=== PATIENT | female | born 1975 | race Two or more races ===

== ENCOUNTER 2024-03-17 21:31 | Emergency (ER) | payer MEDICAID, SELFPAY ==
[2024-03-17 21:32] VITALS: BMI 34.7
[2024-03-17 21:43] VITALS: BP 158/90; PULSE 74; RESP 18; TEMP 37.1; O2SAT 97
--- NOTE | 2024-03-17 21:49 | PD.EDALLER ---
ED Allergic Reaction RME/HPI General Chief complaint: Allergic Reaction Stated complaint: HIVES ALL OVER BODY Time Seen by Provider: 03/17/24 21:48 Arrival date/time: 03/17/24 21:31 48F with history of DM presents to ED with 1 week of intermittent generalized itchy rash. Cetirizine improved it. Patient denies new meds, foods, hygiene products, SOB, and throat swelling. Limitations: no limitations Related Data Home Medications ?Medication ?Instructions ?Recorded ?Confirmed metformin 500 mg tablet 500 mg PO QDAY #0 tabs 02/25/15 (Glucophage) metoprolol tartrate 25 mg tablet PO QDAY #0 tabs 02/25/15 Previous Rx's ?Medication ?Instructions ?Recorded Hydrocodone/Acetaminophen * (NORCO 1 tab PO Q4H PRN ABDOMINAL PAIN 05/11/15 5/325 *) #30 tabs tramadol 50 mg tablet (Ultram) 50 mg PO every 6 hours PRN severe 06/16/16 pain #30 tabs hydrocodone 5 mg-acetaminophen 325 1 tab PO BID PRN pain #10 tabs 12/26/20 mg tablet ibuprofen 800 mg tablet 800 mg PO TID PRN pain #30 tabs 12/26/20 hydrocodone 5 mg-acetaminophen 325 1 tab PO BID PRN pain #10 tabs 08/02/ mg tablet prednisone 20 mg tablet 20 mg PO BID 4 days #8 tabs 03/17/24 Allergies Allergy/AdvReac Type Severity Reaction Status Date / Time No Known Allergies Allergy Verified 03/17/24 21:33 Review of Systems Review of Systems Systems Reviewed: All systems reviewed, normal except as documented Constitutional Constitutional: Reports system reviewed and no additional complaints, except as documented, Denies fever(s) and Denies headache(s) ENT Ears, Nose, Mouth, and Throat: Denies disequilibrium and Denies headache(s) Cardiovascular Cardiovascular: Reports system reviewed and no additional complaints, except as documented, Denies chest pain and Denies dyspnea Respiratory Respiratory: Reports system reviewed and no additional complaints, except as documented, Denies cough and Denies dyspnea Gastrointestinal Gastrointestinal: Reports system reviewed and no additional complaints, except as documented, Denies abdominal pain, Denies nausea and Denies vomiting Integumentary/Breasts Skin/Breast: Reports as per HPI, Reports pruritus and Reports rash Neurologic Neurologic: Reports system reviewed and no additional complaints, except as documented, Denies confusion, Denies disequilibrium and Denies headache(s) Psychiatric Psychiatric: Denies confusion Past Medical History Social History SMOKING STATUS: Never smoker ED Exam General Limitations: Present no limitations General appearance: Present alert and in no apparent distress Head Head exam: Present atraumatic Eye Eye exam: Present normal appearance, PERRL and EOMI ENT ENT exam: Present normal exam, normal oropharynx and mucous membranes moist Neck Neck exam: Present normal inspection, full ROM and trachea midline Chest Chest inspection: Present normal inspection and symmetric chest wall rise Respiratory Respiratory exam: Present normal lung sounds bilaterally Cardiovascular Cardiovascular exam: Present regular rate, normal rhythm and normal heart sounds Abdominal Exam Abdominal exam: Present soft and normal bowel sounds Extremities Exam Extremities exam: Present normal inspection and full ROM Back Exam Back exam: Present normal inspection and full ROM Neurological Exam Neurological exam: Present alert, oriented X3 and CN II-XII intact Psychiatric Psychiatric exam: Present normal affect and normal mood Skin Skin exam: Present warm, dry, intact, normal color and rash Course Quality Measures none Orders Category Date Time Status Dexamethasone Inj [Decadron Inj] Med 03/17/24 21:48 Discontinued 10 mg PO X1 ONE DiphenhydrAMINE [Benadryl] Med 03/17/24 21:48 Discontinued 25 mg PO X1 ONE Famotidine [Pepcid] Med 03/17/24 21:48 Discontinued 40 mg PO X1 ONE predniSONE Med 03/17/24 21:48 Discontinued 20 mg PO X1 ONE Vital Signs Vital signs: Vital Signs Temperature 98.8 F 03/17/24 21:43 Pulse Rate 74 03/17/24 21:43 Respiratory Rate 18 03/17/24 21:43 Blood Pressure 158/90 H 03/17/24 21:43 Pulse Oximetry (%) 97 03/17/24 21:43 Oxygen Delivery Method Room Air 03/17/24 21:43 O2 at 97% on RA and WNLs Allergic Reaction MDM Narrative MDM Narrative:: 48F with history of DM presents to ED with 1 week of intermittent generalized itchy rash. Cetirizine improved it. Patient denies new meds, foods, hygiene products, SOB, and throat swelling. Physical exam reveals mild but generalized urticarial rash. Clear ENT and lungs. Patient is afebrile, calm, and alert. Meds relieved symptoms. Patient data External records reviewed:: [facility] previous records Clinical information provided by:: patient Social determinants that could affect healthcare access:: none Patient has the following chronic illnesses:: DM How is presenting disease/condition affected by chronic disease/condition?: uneffected by Evaluation data The following diagnostics were reviewed and interpreted by me:: other (specify) (none) Lab and/or radiology exams considered but not ordered:: not ordered Interpretation Summary: n/a Medications / Prescriptions Medications or Prescriptions considered but not ordered:: ordered Medication administrations:: Medication Administration History Discontinued Medications Dexamethasone Sodium Phosphate (Dexamethasone Sod Phos Inj 10 Mg/Ml Vial) 10 mg PO X1 ONE Stop: 03/17/24 21:49 Last Admin: 03/17/24 21:56 Dose: 10 mg Documented By: OA Diphenhydramine HCl (Diphenhydramine 25 Mg Capsule) 25 mg PO X1 ONE Stop: 03/17/24 21:49 Last Admin: 03/17/24 21:56 Dose: 25 mg Documented By: OA Famotidine (Famotidine 20 Mg Tablet) 40 mg PO X1 ONE Stop: 03/17/24 21:49 Last Admin: 03/17/24 21:55 Dose: 40 mg Documented By: OA Prednisone (Prednisone 20 Mg Tablet) 20 mg PO X1 ONE Stop: 03/17/24 21:49 Last Admin: 03/17/24 21:56 Dose: 20 mg Documented By: OA above Consultations Consultation(s) initiated? (list below): No Diagnosis Differential Diagnosis allergic reaction: anaphylaxis, allergic reaction, angioedema, contact dermatitis, adverse reaction to drug, viral enanthem and urticaria Most likely diagnosis given after review of the tests above:: urticaria Admission Indicated Admission indicated?: not indicated Admission Request Was there a request for admission?: No Disposition Plan Disposition Plan: Discharge Discharge Attestation Discharge Attestation: The patient and all family members were given an opportunity to ask questions and understood the discharge instructions. Discharge instructions specifically effects, indications for sooner follow up or return to the emergency department, and the expected course of current diagnosis. Patient condition: Stable Discharge Plan Plan Patient Disposition: HOME (Self Care) Disposition Comment: Stable Prescriptions/Referrals Prescriptions/Med Rec: New prednisone 20 mg tablet 20 mg PO BID 4 Days Qty: 8 0RF No Action metformin [Glucophage] 500 MG tablet 500 mg PO QDAY Qty: 0 metoprolol tartrate 25 MG tablet PO QDAY Qty: 0 Hydrocodone/Acetaminophen * (NORCO 5/325 *) 1 TAB tablet 1 tab PO Q4H PRN (Reason: ABDOMINAL PAIN) Qty: 30 0RF tramadol [Ultram] 50 MG tablet 50 mg PO every 6 hours PRN (Reason: severe pain) Qty: 30 0RF Rx Instructions: FOR PAIN, NOT TO EXCEED 8 TABS IN 24 HRS ibuprofen 800 mg tablet 800 mg PO TID PRN (Reason: pain) Qty: 30 0RF hydrocodone-acetaminophen 5-325 mg tablet 1 tab PO BID MDD 10 PRN (Reason: pain) Qty: 10 0RF hydrocodone-acetaminophen 5-325 mg tablet 1 tab PO BID MDD 10 PRN (Reason: pain) Qty: 10 0RF Referrals: Chepe Gallegos MD [Primary Care Provider] - In 1 week Problem List Clinical Impression: Urticaria Patient/Caregiver Discharge Instructions Education Materials: ED Hives (Adult) Additional Instructions: Please follow-up with PCP within 24-48 hours and return immediately if symptoms worsen. Take OTC antihistamine as needed until symptoms resolve. Finish entire steroid course. Watch sugars as steroids will elevate BS. Print Language: Iranian Stand Alone Forms: Patient Portal Info Letter PA/ADELFO Supervising Physician ANISHA/ADELFO Supervising Physician: Dr. Rodriguez
[2024-03-17] MEDS: FAMOTIDINE 20 MG TABLET 40 MG PO (21:55)
[2024-03-17] MEDS: DiphenhydrAMINE 25 MG CAPSULE PO (21:56)
[2024-03-17] MEDS: DEXAMETHASONE SOD PHOS INJ 10 MG/ML VIAL PO (21:56)
[2024-03-17] MEDS: predniSONE 20 MG TABLET PO (21:56)
== END 2024-03-18 00:51 | disposition home or self-care (01) ==
PROVIDERS: Emergency Provider Emergency Medicine; PCP Family Medicine
DX: L50.9 Urticaria, unspecified (principal)
CPT/HCPCS: 99282; J1100; J7512; A9270

== ENCOUNTER 2024-03-22 00:35 | Emergency (ER) | payer MEDICAID, SELFPAY ==
[2024-03-22 00:39] VITALS: BMI 34.7
[2024-03-22 00:57] VITALS: BP 137/79; PULSE 70; RESP 16; TEMP 37; O2SAT 98
--- NOTE | 2024-03-22 01:06 | PD.EDSKIN ---
ED Skin Abcess FB-RME/HPI General Chief complaint: Skin/Abscess/Foreign Body Stated complaint: RASH ALL OVER Time Seen by Provider: 03/22/24 00:41 Arrival date/time: 03/22/24 00:35 48 year old female present to emergency room with c/o of hives today. pt report hive return today. pt had similar rash 6 days ago. has an appointment with specialist next week. LOCATION: chest/abd SEVERITY: Symptoms are described as being severe with limitations on activities of daily living QUALITY: Symptoms are described as being dull or achy CONTEXT: The patient is unable to identify any inciting events. DURATION/TIMING: The symptoms started approximately one day ago ASSOCIATED SYMPTOMS: The patient is unable to identify any other associated symptoms. MODIFYING FACTORS: The patient is unable to identify any alleviating or aggravating symptoms. PERTINENT ROS: denies IVDU, states no immunocompromising condition, denies any penetrating trauma, no fever, no unexplained nausea or vomiting, no headache, no chest pain REVIEW OF SYSTEMS: See History of Present Illness - with the exception of those mentioned in the history of present illness, all other systems reviewed and reported as negative GENERAL: In general the patient is awake, interactive, in an emergency department gurney. HEAD/EYES/EARS/NOSE/THROAT: normo-cephalic, atraumatic, mucus membranes are moist, anicteric, palpebral conjunctiva is pink, trachea is midline. CARDIOVASCULAR: regular rate and regular rhythm, no murmurs, heart sounds are not distant, strong pulses in all four extremities that are equal and symmetric bilateral upper and lower extremities, normal capillary refill. CHEST/PULMONARY: normal chest rise and fall, good air movement, clear to auscultation bilaterally, normal inspiratory to expiratory ratios without evidence of respiratory distress. NECK: No midline/Paraspinal tenderness, no step off ROM/Strenght intact No Kernig and bruzinski sign. No trauma ABDOMEN: soft, not tender, no masses appreciated BACK: normal range of motion without pain. NEUROLOGICAL: cranio-facial features are symmetric, moves all four extremities equally without obvious limitations or weakness. EXTREMITY: no tenderness to palpation over the long bones or large joints of the bilateral upper and lower extremities, no joint swelling, no joint erythema, no signs of trauma, no unilateral leg swelling and no peripheral edema. SKIN: warm, dry, well-perfused, no jaundice, + hive like rash on chect/abdominal reion , no telangiectasias or petechia. PSYCH: calm, cooperative, no evidence of psychosis or agitation Related Data Home Medications ?Medication ?Instructions ?Recorded ?Confirmed metformin 500 mg tablet 500 mg PO QDAY #0 tabs 02/25/15 (Glucophage) metoprolol tartrate 25 mg tablet PO QDAY #0 tabs 02/25/15 Previous Rx's ?Medication ?Instructions ?Recorded Hydrocodone/Acetaminophen * (NORCO 1 tab PO Q4H PRN ABDOMINAL PAIN 05/11/15 5/325 *) #30 tabs tramadol 50 mg tablet (Ultram) 50 mg PO every 6 hours PRN severe 06/16/16 pain #30 tabs hydrocodone 5 mg-acetaminophen 325 1 tab PO BID PRN pain #10 tabs 12/26/20 mg tablet ibuprofen 800 mg tablet 800 mg PO TID PRN pain #30 tabs 12/26/20 hydrocodone 5 mg-acetaminophen 325 1 tab PO BID PRN pain #10 tabs 08/02/22 mg tablet loratadine 10 mg tablet (Allergy 10 mg PO QDAY #30 tabs 03/22/24 Relief (loratadine)) Allergies Allergy/AdvReac Type Severity Reaction Status Date / Time No Known Allergies Allergy Verified 03/17/24 21:33 Course Course Course Narrative: Patient presenting with urticaria.? The inciting event was likely unknown Patient provided Benadryl 25mg IM? Following which, patient stated they felt improved.? Discussed continuing Benadryl treatments every?-6 hours.? Patient is to follow up with primary care provider to further discuss anaphylactic treatment and allergin testing as needed.? Return to clinic or emergency department urgently if new or worsening symptoms develop including oral swelling, difficulty breathing, chest pain, shortness of breath, worsening rash, headache, or other worrisome symptoms. ? ? Plan:? Diphenhydramine?-50mg q4-6h PRN.? Loratadine?mg qam RPN. and educated Pt on indications for administration. Advised Pt on supportive therapies, including decreasing exposure to possible allergens, cold application, OTC ibuprofen as directed prn, and advancement of fluids as tolerated. Educated Pt on signs and symptoms of anaphylaxis and instructed her to report to ED should worrisome signs present.? Pt verbally expressed understanding and all questions were addressed to Pt's satisfaction. Quality Measures none Orders Category Date Time Status DiphenhydrAMINE INJ [Benadryl Inj] Med 03/22/24 01:05 Discontinued 25 mg IM X1 ONE Vital Signs Vital signs: Vital Signs Temperature 98.6 F 03/22/24 00:57 Pulse Rate 70 03/22/24 00:57 Respiratory Rate 16 03/22/24 00:57 Blood Pressure 137/79 H 03/22/24 00:57 Pulse Oximetry (%) 98 03/22/24 00:57 Oxygen Delivery Method Room Air 03/22/24 00:57 Skin / Abscess / Foreign Body Patient data External records reviewed:: Other (specify) Clinical information provided by:: patient Social determinants that could affect healthcare access:: none Patient has the following chronic illnesses:: none How is presenting disease/condition affected by chronic disease/condition?: no chronic disease Evaluation data The following diagnostics were reviewed and interpreted by me:: other (specify) Lab and/or radiology exams considered but not ordered:: none Interpretation Summary: none Medications / Prescriptions Medications or Prescriptions considered but not ordered:: none Medication administrations:: Medication Administration History Discontinued Medications Diphenhydramine HCl (Diphenhydramine Inj 50 Mg/Ml Vial) 25 mg IM X1 ONE Stop: 03/22/24 01:06 as stated above Consultations Consultation(s) initiated? (list below): No Diagnosis Skin/Abscess Differential Diagnosis: urticaria and allergic reaction to drug Most likely diagnosis given after review of the tests above:: hives Admission Indicated Admission indicated?: not indicated Admission Request Was there a request for admission?: No Disposition Plan Disposition Plan: Discharge Discharge Attestation Discharge Attestation: The patient and all family members were given an opportunity to ask questions and understood the discharge instructions. Discharge instructions specifically effects, indications for sooner follow up or return to the emergency department, and the expected course of current diagnosis. Patient condition: Stable Discharge Plan Plan Patient Disposition: HOME (Self Care) Health Concerns: Follow up with your specialist as schedule Return to Ed if symptoms worsen Prescriptions/Referrals Prescriptions/Med Rec: New loratadine [Allergy Relief (loratadine)] 10 mg tablet 10 mg PO QDAY Qty: 30 0RF No Action metformin [Glucophage] 500 MG tablet 500 mg PO QDAY Qty: 0 metoprolol tartrate 25 MG tablet PO QDAY Qty: 0 Hydrocodone/Acetaminophen * (NORCO 5/325 *) 1 TAB tablet 1 tab PO Q4H PRN (Reason: ABDOMINAL PAIN) Qty: 30 0RF tramadol [Ultram] 50 MG tablet 50 mg PO every 6 hours PRN (Reason: severe pain) Qty: 30 0RF Rx Instructions: FOR PAIN, NOT TO EXCEED 8 TABS IN 24 HRS ibuprofen 800 mg tablet 800 mg PO TID PRN (Reason: pain) Qty: 30 0RF hydrocodone-acetaminophen 5-325 mg tablet 1 tab PO BID MDD 10 PRN (Reason: pain) Qty: 10 0RF hydrocodone-acetaminophen 5-325 mg tablet 1 tab PO BID MDD 10 PRN (Reason: pain) Qty: 10 0RF Problem List Clinical Impression: Urticaria Patient/Caregiver Discharge Instructions Education Materials: ED Hives (Adult) Print Language: Portuguese Stand Alone Forms: Rissa Award Info., Patient Portal Info Letter
[2024-03-22] MEDS: DiphenhydrAMINE INJ 50 MG/ML VIAL 25 MG IM (01:33)
== END 2024-03-22 02:19 | disposition home or self-care (01) ==
LOC: SERX 01:37
PROVIDERS: Emergency Provider Emergency Medicine; PCP Nurse Practitioner Family
DX: L50.9 Urticaria, unspecified (principal)
CPT/HCPCS: 96372; 99283; J1200

== ENCOUNTER 2024-09-17 11:19 | Emergency (ER) | payer MEDICAID, SELFPAY ==
[2024-09-17 11:21] VITALS: BMI 37.2
[2024-09-17 11:43] VITALS: BP 160/89; PULSE 78; RESP 17; TEMP 37.1; O2SAT 98
--- NOTE | 2024-09-17 11:53 | XR_ITS ---
Examination: CT brain head without contrast. 2-D sagittal coronal reconstructions Date and time of exam:September 17, 2024 1205 hours Syncopal episodes and dizziness beginning this morning CTDI: vol (mGy):56.4 DLP: (mGycm):1195 Technique: Multiple CT axial sections of the brain have been obtained, 5 mm slice thickness. Contrast has not been administered. 2-D sagittal, coronal reconstructions have been obtained Low dose protocols were performed. One or more of the following dose reduction techniques were used; automated exposure control, adjustment of the mA and/or KV according to patient size, use of iterative reconstruction technique. Findings: No significant ventricular enlargement. Intra-axial or extra-axial hemorrhage density is not seen. No mass effect or midline shift Basal cisterns are not remarkable. Fourth ventricle is midline. Cranial vault intact. Impression: Negative for acute hemorrhage, mass effect or midline shift Advise clinical correlation follow-up accordingly
--- NOTE | 2024-09-17 11:53 | EKG_ITS ---
[facility] Test Date: 2024-09-17 Pat Name: JULIAN RAM Department: Room: - Gender: Female [employer]: : 1975 Requested By: Oswaldo Alejandro Order Number: [id number] Reading MD: Oswaldo Alejandro Measurements Intervals Jermyn Rate: 77 P: 56 MD: 163 QRS: 42 QRSD: 95 T: 43 QT: 370 QTc: 421 Interpretive Statements SINUS RHYTHM No previous ECG available for comparison /store/S0/[id number]
--- NOTE | 2024-09-17 11:54 | PD.EDRME ---
Rapid Medical Screening Exam E Arrival date/time: 09/17/24 11:19 49-year-old female with a history of type 2 diabetes and hypertension presents to the emergency room with a chief complaint of having multiple episodes of dizziness and syncope this morning around 1 AM. Patient states she woke up to use the restroom felt very dizzy and had a syncopal episode but fell back on her bed. Patient states the dizziness and lightheadedness has still not gone away she was seen by her primary care provider this morning which sent her to the emergency room for a scan of her head. I have greeted and performed a focused initial assessment of this patient. A comprehensive ED assessment and evaluation of the patient, analysis of all test results, and completion of the medical decision making process will be conducted by additional ED providers. Chief Complaint: Syncope / Near Syncope Time Seen by Provider: 09/17/24 11:44 Vital signs: Vital Signs Temperature 98.7 F 09/17/24 11:43 Pulse Rate 78 09/17/24 11:43 Respiratory Rate 17 09/17/24 11:43 Blood Pressure 160/89 H 09/17/24 11:43 Pulse Oximetry (%) 98 09/17/24 11:43 Oxygen Delivery Method Room Air 09/17/24 11:43 Vital signs reviewed by provider: Yes
[2024-09-17 12:35] LABS: Basophils # (Auto) 0.0 Thou/mm3 (0.0-0.2); Basophils % (Auto) 1 % (0-2.5); Eosinophils # (Auto) 0.3 Thou/mm3 (0.0-0.5); Eosinophils % (Auto) 4 % (0-10); Hematocrit 38.5 % (36.0-46.0); Hemoglobin 13.2 g/dL (12.0-16.0); Immature Granulocytes Auto 0.07 Thou/mm3 (0.00-0.00); Lymphocytes # (Auto) 2.1 Thou/mm3 (1.0-4.8); Lymphocytes % (Auto) 26 % (10-50); Mean Corpuscular HGB Conc 34.3 g/dl (31.0-37.0); Mean Corpuscular Hemoglobin 29.5 pg (25.0-35.0); Mean Corpuscular Volume 86 fL (80-100); Monocytes # (Auto) 0.6 Thou/mm3 (0.0-0.8); Monocytes % (Auto) 7 % (0-12); Neutrophils # (Auto) 5.2 Thou/mm3 (1.8-7.7); Neutrophils % (Auto) 63 % (37-80); Nucleated Red Blood Cell # 0.00 Thou/mm3 (0.00-0.00); Nucleated Red Blood Cell % 0 /100 WBC (0); Platelet Count 299 Thou/mm3 (140-440); RDW Standard Deviation 43.4 fL (36.4-46.3); Red Blood Count 4.47 Miln/mm3 (4.00-5.20); White Blood Count 8.3 Thou/mm3 (3.6-11.0)
[2024-09-17 12:42] LABS: B-Type Natriuretic Peptide < 20 pg/mL (0-100)
[2024-09-17 12:47] LABS: Alanine Aminotransferase 21 U/L (10-49); Albumin, Serum 4.5 gm/dL (3.5-5.0); Albumin/Globulin Ratio 1.7 (1.2-2.2); Alkaline Phosphatase 89 U/L (46-116); Anion Gap 7 (7-16); Aspartate Amino Transferase 23 U/L (0-34); BUN/Creatinine Ratio 23 Ratio (12-20); Bilirubin,Total 0.4 mg/dL (0.3-1.2); Blood Urea Nitrogen 16 mg/dL (9-23); Calcium 9.3 mg/dL (8.3-10.6); Calcium (Corrected) 9.3 mg/dL (8.5-10.1); Carbon Dioxide 25.8 mMol/L (20.0-31.0); Chloride 107 mMol/L (98-107); Creatinine (Component) 0.7 mg/dL (0.6-1.3); Estimated Creatinine Clearance 128.2 mL/min (>60); Globulin 2.7 gm/dL (2.3-3.5); Glucose 186 mg/dL (74-106); Magnesium 2.0 mg/dL (1.6-2.6); Osmolality,Calculated 285 (275-295); Potassium 4.0 mMol/L (3.4-5.1); Sodium 140 mMol/L (136-145); Total Protein 7.2 gm/dL (5.7-8.2); Troponin I < 0.002 ng/mL (0.0-0.045); eGFR > 60 See Note
[2024-09-17 12:51] LABS: Collection Type, Urine Clean Catch
[2024-09-17 12:58] LABS: Bilirubin,Urine Negative (Negative); Blood,Urine 2+ (Negative); Clarity,Urine Clear (Clear/Hazy); Color,Urine Yellow (Lt Yel-Yel); Glucose, Urine Negative (Negative); Ketones,Urine Negative (Negative); Leukocyte Esterase,Urine Negative (Negative); Nitrite,Urine Negative (Negative); PH,Urine 5.5 (5.0-7.0); Protein,Urine Negative (Neg - Trace); RBC,Urine 5 /hpf (0-3); Specific Gravity,Urine 1.030 (1.001-1.035); Squamous Epithelial Cell,Urine 2 /hpf (0-5); Urobilinogen,Urine Negative mg/dL (0.0-1.0); WBC,Urine 1 /hpf (0-5)
[2024-09-17 13:05] LABS: Amphetamine/Methamp Scrn,U Negative (Negative); Barbiturate Screen,Urine Negative (Negative); Benzodiazepines Screen,Urine Negative (Negative); Benzoylecgonine Screen, Ur Negative (Negative); Fentanyl Screen,Urine Negative (Negative); Opiate Screen,Urine Negative (Negative); THC Screen,Urine Negative (Negative)
--- NOTE | 2024-09-17 16:37 | PD.EDSYNC ---
ED Syncope RME/HPI General Chief Complaint: Syncope / Near Syncope Stated Complaint: NEAR SYNCOPE WHEN STANDING Time Seen by Provider: 09/17/24 11:44 Source: patient Arrival date/time: 09/17/24 11:19 Limitations: no limitations RME / HPI RME / HPI narrative: 49-year-old female history of hypertension diabetes is here with dizziness. She states this started overnight. This is described as the room spinning around you. She is feeling faint when this happens. She has no history of heart failure. No history of ACS. She has no lower leg swelling and has no lower leg pain. She denies any chest pain. She states when she lays down her right side, the dizziness worsens. She denies any falls or injury. She has no head trauma. She has no other acute complaints. Related Data Home Medications ?Medication ?Instructions ?Recorded ?Confirmed metformin 500 mg tablet 500 mg PO QDAY #0 tabs 02/25/15 (Glucophage) metoprolol tartrate 25 mg tablet PO QDAY #0 tabs 02/25/15 Previous Rx's ?Medication ?Instructions ?Recorded Hydrocodone/Acetaminophen * (NORCO 1 tab PO Q4H PRN ABDOMINAL PAIN 05/11/15 5/325 *) #30 tabs tramadol 50 mg tablet (Ultram) 50 mg PO every 6 hours PRN severe 06/16/16 pain #30 tabs hydrocodone 5 mg-acetaminophen 325 1 tab PO BID PRN pain #10 tabs 12/26/20 mg tablet ibuprofen 800 mg tablet 800 mg PO TID PRN pain #30 tabs 12/26/20 hydrocodone 5 mg-acetaminophen 325 1 tab PO BID PRN pain #10 tabs 08/02/22 mg tablet loratadine 10 mg tablet (Allergy 10 mg PO QDAY #30 tabs 03/22/24 Relief (loratadine)) Allergies Allergy/AdvReac Type Severity Reaction Status Date / Time No Known Allergies Allergy Verified 09/17/24 11:23 Review of Systems Review of Systems Systems Reviewed: All systems reviewed, normal except as documented ED Exam General Limitations: Present no limitations General appearance: Present alert and in no apparent distress Head Head exam: Present atraumatic Eye Eye exam: Present normal appearance, PERRL and EOMI ENT ENT exam: Present normal exam, normal oropharynx and mucous membranes moist Neck Neck exam: Present normal inspection, full ROM and trachea midline Chest Chest inspection: Present normal inspection and symmetric chest wall rise Respiratory Respiratory exam: Present normal lung sounds bilaterally Cardiovascular Cardiovascular exam: Present regular rate, normal rhythm and normal heart sounds Abdominal Exam Abdominal exam: Present soft and normal bowel sounds Extremities Exam Extremities exam: Present normal inspection and full ROM Back Exam Back exam: Present normal inspection and full ROM Neurological Exam Neurological exam: Present alert, oriented X3 and other (Hallpike maneuvers are positive.) Psychiatric Psychiatric exam: Present normal affect and normal mood Skin Skin exam: Present warm, dry, intact and normal color Course Quality Measures none Orders Category Date Time Status EKG (ED ONLY) *Do not use* NOW Care 09/17/24 11:[address] head/brain wo con Stat Exams 09/17/24 11:53 Completed EKG (ED Only) Stat Exams 09/17/24 11:53 Draft B-Type Natriuretic Peptide Stat Lab 09/17/24 12:14 Completed CBC Stat Lab 09/17/24 12:14 Completed Comprehensive Metabolic Panel Stat Lab 09/17/24 12:14 Completed Drug Screen,Urine Stat Lab 09/17/24 12:27 Completed Magnesium Stat Lab 09/17/24 12:14 Completed Troponin I Stat Lab 09/17/24 12:14 Completed Urinalysis Stat Lab 09/17/24 12:27 Completed Vital Signs Vital signs: Vital Signs Temperature 98.7 F 09/17/24 11:43 Pulse Rate 78 09/17/24 11:43 Respiratory Rate 17 09/17/24 11:43 Blood Pressure 160/89 H 09/17/24 11:43 Pulse Oximetry (%) 98 09/17/24 11:43 Oxygen Delivery Method Room Air 09/17/24 11:43 Syncope MDM Narrative MDM Narrative:: 49-year-old female who is here today with dizziness and vertigo. Work appears essentially unremarkable with the exception of her elevated glucose. CT was obtained and is unremarkable. Hallpike maneuvers are positive. We discussed this as the likely etiology of her symptoms. We discussed repositioning techniques at home. Patient may benefit from Christiano maneuvers performed at home. She will try this at her house, she may use YouTube videos for further assistance. She is invited to follow-up with her primary doctor or return here as needed for any worsening or emergent changes. Patient data External records reviewed:: None Clinical information provided by:: patient Social determinants that could affect healthcare access:: none Patient has the following chronic illnesses:: Hypertension, diabetes How is presenting disease/condition affected by chronic disease/condition?: uneffected by Evaluation data The following diagnostics were reviewed and interpreted by me:: lab results (Mild hyperglycemia is present) and radiology exam(s) (CT of the head is unremarkable for any acute intercranial abnormality) Lab and/or radiology exams considered but not ordered:: n/a Interpretation Summary: Negative workup Medications / Prescriptions Medications or Prescriptions considered but not ordered:: n/a Medication administrations:: n/a Consultations Consultation(s) initiated? (list below): No Diagnosis Syncope Differential Diagnosis: syncope due to orthostatic hypotension, vasovagal syncope and dehydration Most likely diagnosis given after review of the tests above:: Benign paroxysmal vertigo Admission Indicated Admission indicated?: not indicated Admission Request Was there a request for admission?: No Disposition Plan Disposition Plan: Discharge Discharge Attestation Discharge Attestation: The patient and all family members were given an opportunity to ask questions and understood the discharge instructions. Discharge instructions specifically effects, indications for sooner follow up or return to the emergency department, and the expected course of current diagnosis. Patient condition: Stable Discharge Plan Plan Patient Disposition: HOME (Self Care) Patient condition on transfer: Stable Prescriptions/Referrals Prescriptions/Med Rec: No Action metformin [Glucophage] 500 MG tablet 500 mg PO QDAY Qty: 0 metoprolol tartrate 25 MG tablet PO QDAY Qty: 0 Hydrocodone/Acetaminophen * (NORCO 5/325 *) 1 TAB tablet 1 tab PO Q4H PRN (Reason: ABDOMINAL PAIN) Qty: 30 0RF tramadol [Ultram] 50 MG tablet 50 mg PO every 6 hours PRN (Reason: severe pain) Qty: 30 0RF Rx Instructions: FOR PAIN, NOT TO EXCEED 8 TABS IN 24 HRS ibuprofen 800 mg tablet 800 mg PO TID PRN (Reason: pain) Qty: 30 0RF hydrocodone-acetaminophen 5-325 mg tablet 1 tab PO BID MDD 10 PRN (Reason: pain) Qty: 10 0RF hydrocodone-acetaminophen 5-325 mg tablet 1 tab PO BID MDD 10 PRN (Reason: pain) Qty: 10 0RF loratadine [Allergy Relief (loratadine)] 10 mg tablet 10 mg PO QDAY Qty: 30 0RF Referrals: Tomas Arnold FNP [Primary Care Provider] - In 1 week Problem List Clinical Impression: Benign paroxysmal positional vertigo Patient/Caregiver Discharge Instructions Education Materials: BPPV Additional Instructions: - Perform repositioning techniques at home. - You may also find repositioning techniques for vertigo on YouTube. - Please return anytime for any worsening or emergent changes. Print Language: Nepali Stand Alone Forms: Rissa Award Info., Patient Portal Info Letter
== END 2024-09-17 16:52 | disposition home or self-care (01) ==
PROVIDERS: Nurse Practitioner Family; Emergency Provider Family Medicine; PCP Nurse Practitioner Family
DX: H81.10 Benign paroxysmal vertigo, unspecified ear (principal); I10 Essential (primary) hypertension; E11.9 Type 2 diabetes mellitus without complications
CPT/HCPCS: 36415; 70450; 80053; 80307; 81001; 83735; 83880; 84484; 85025; 93005; 99284